=== PATIENT | female | born 1960 | race Caucasian/White ===

== ENCOUNTER 2020-08-02 21:37 | Emergency (ER) | payer OTHER ==
[~2020-08-02] VITALS: Ht 152.4 cm; Wt 86.0 kg
[2020-08-02] MEDS ORDERED: SODIUM CHLORIDE 0.9% 1,000 ML IV ONE (23:00)
[2020-08-02 23:33] LABS: EOSINOPHILS % 1.8 % (0.0-5.0); HEMATOCRIT. 38.9 % (36.0-48.0); HEMOGLOBIN. 13.2 g/dL (12.0-16.0); LYMPHOCYTES % 25.7 % (20.0-50.0); MEAN CORPUSCULAR HEMOGLOBIN 29.9 pg (28.0-32.0); MEAN CORPUSCULAR VOLUME 88.1 fL (81.0-99.0); MEAN PLATELET VOLUME 10.6 fl (7.4-10.4); MONOCYTES % 9.2 % (2.0-8.0); NEUTROPHILS % 62.3 % (40.0-76.0); PLATELET 151 x1000/uL (130-400); RED BLOOD CELL COUNT 4.42 mill/uL (4.2-5.4); RED CELL DISTRIBUTION WIDTH 13.7 % (11.6-14.6)
[2020-08-02 23:37] LABS: CHLORIDE 104 mEq/L (98-107)
[2020-08-02 23:39] LABS: PROTHROMBIN TIME 10.6 sec (9.6-11.0)
[2020-08-02 23:40] LABS: CLARITY URINE CLEAR (CLEAR); COLOR URINE YELLOW (YELLOW); KETONES URINE NEGATIVE (NEGATIVE); LEUKOCYTE ESTERASE URINE TRACE (NEGATIVE); NITRITE URINE POSITIVE (NEGATIVE); OCCULT BLOOD URINE NEGATIVE (NEGATIVE); PH URINE 6.5 (4.5-8.0); PROTEIN URINE NEGATIVE (NEGATIVE); SPECIFIC GRAVITY URINE 1.006 (1.005-1.030)
[2020-08-02] MEDS ORDERED: LORAZEPAM 2MG/ML CPJ IV ONE (23:45)
[2020-08-03] MEDS ORDERED: NITROFURANTOIN 100MG M/M CAPSULE PO ONE (00:20)
[2020-08-03 01:50] VITALS: BP 134/68
== END 2020-08-03 02:12 | disposition home or self-care (01) ==
LOC: ER 21:37
DX: E11.65 Type 2 diabetes mellitus with hyperglycemia (principal); N39.0 Urinary tract infection, site not specified; R42 Dizziness and giddiness; Z90.710 Acquired absence of both cervix and uterus; Z88.0 Allergy status to penicillin; Z79.84 Long term (current) use of oral hypoglycemic drugs
CPT/HCPCS: 36415; 80053; 81003; 82962; 85025; 85610; 93005; 96360; 96361; 99284; J7030

== ENCOUNTER 2022-11-18 08:00 | Emergency (ER) | payer OTHER ==
[~2022-11-18] VITALS: Ht 165.1 cm; Wt 75.0 kg
[2022-11-18 08:15] VITALS: BP 155/82
[2022-11-18] MEDS ORDERED: NAPR500T7 MT (09:40)
== END 2022-11-18 11:24 | disposition home or self-care (01) ==
LOC: ER 08:00
DX: M10.9 Gout, unspecified (principal); E11.9 Type 2 diabetes mellitus without complications; I10 Essential (primary) hypertension; Z90.710 Acquired absence of both cervix and uterus; Z88.0 Allergy status to penicillin
CPT/HCPCS: 99282

== ENCOUNTER 2022-11-20 08:39 | Emergency (ER) | payer MEDICAID, OTHER ==
[~2022-11-20] VITALS: Ht 157.5 cm; Wt 82.0 kg
[~2022-11-20 08:39] MED LIST: NAPR500T7 MT
[2022-11-20 12:45] VITALS: BP 112/61
[2022-11-20] MEDS ORDERED: LIDOCAINE HCL/PF 1% 10 MG/ML 5ML VIAL INFIL ONE (12:45)
[2022-11-20] MEDS ORDERED: BACITRACIN ZINC OINT UDPKT TOP ONE (12:45)
[2022-11-20] MEDS ORDERED: IBUPROFEN 600MG TABLET PO ONE (12:45)
[2022-11-20] MEDS ORDERED: CLIN-194 MT (13:59)
[2022-11-20] MEDS ORDERED: SULF1TAB48 MT (13:59)
[2022-11-20] MEDS ORDERED: NAPR-681 PO (13:59)
== END 2022-11-20 14:54 | disposition home or self-care (01) ==
LOC: ER 08:39
DX: L03.032 Cellulitis of left toe (principal); E11.9 Type 2 diabetes mellitus without complications; I10 Essential (primary) hypertension; Z88.0 Allergy status to penicillin
CPT/HCPCS: 99283; J3490